=== PATIENT | female | born 1990 | race Caucasian/White ===

== ENCOUNTER 2016-02-15 11:26 | Emergency (ER) | payer OTHER ==
[~2016-02-15] VITALS: Ht 149.9 cm; Wt 40.5 kg
[2016-02-15 11:40] VITALS: Ht 149.9 cm; Wt 40.5 kg
[2016-02-15] MEDS ORDERED: LIDOCAINE 1% (MDV) 20 ML INJ SC ONE (13:00)
[2016-02-15] MEDS ORDERED: IBUPROFEN 600 MG TAB PO ONE (13:00)
[2016-02-15] MEDS ORDERED: IBUP400T22 PO (13:33)
[2016-02-15] MEDS ORDERED: HYDR-906 PO (13:33)
[2016-02-15] MEDS ORDERED: BACTDS PO (13:33)
--- NOTE | 2016-02-15 13:33 | ERD ---
ER Documentation Chief Complaint Date/Time DATE: 02/15/16 Chief Complaint Abscess to left axilla HPI The patient is a 25-year-old female who presents to the Emergency Department with complaint of an abscess to her left axillary region. She reports that she developed minimal pain, swelling, erythema, and tenderness to the left axilla last Saturday, one week ago, that has since worsened. She reports pressure- like throbbing pain to the site of the abscess, and notes that there is overlying erythema to the region that appears to be spreading. She has not yet taken any medication for pain relief. She denies any fevers, chills, nausea, or vomiting. Denies history of diabetes. Patient drove and brought herself to the ED. ROS All systems reviewed and are negative except as per history of present illness. 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 Head: Atraumatic Eyes: Normal Conjunctiva ENT: Normal External Ears, Nose and Mouth. Neck: Full range of motion. Supple. Resp: Clear to auscultation bilaterally Cardio: Regular rate and rhythm. Abd: Soft, non tender, non distended. Skin: 2 cm x 2 cm round, raised, fluctuant, tender abscess to the left axillary region, with overlying erythema and warmth. No spontaneous drainage. No bleeding. No lymphatic streaking. No crepitus. No petechiae or purpura. No ulcerations. No bullae. Ext: No clubbing, cyanosis, or edema. Moving all extremities. Distal pulses are palpable, 2+ bilaterally. Capillary refill is less than 2 seconds. Neur: Awake and alert Psych: Normal Mood and Affect Results 24 hrs Current Medications Medications (Trade) Dose Ordered Sig/Digna Route PRN Reason Start Time Stop Time Status Last Admin Dose Admin Ibuprofen (Motrin) 600 mg ONCE ONCE PO 02/15/16 13:00 02/15/16 13:01 DC 02/15/16 14:22 Lidocaine (Xylocaine 1% (Mdv) 20 ml) 20 ml ONCE ONCE SC 02/15/16 13:00 02/15/16 13:01 DC Procedures/MDM PROCEDURE: INCISION AND DRAINAGE OF ABSCESS INDICATION: Abscess to left axilla. CONSENT:Consent was obtained from the patient prior to the procedure. Indications, risks, and benefits were explained at length. PROCEDURE SUMMARY: A timeout protocol was performed prior to initiating the procedure. The patient was positioned appropriately. The area was prepared and draped in the usual sterile manner. The site was adequately anesthetized with approximately 2 cc 1% lidocaine without epinephrine. The are was cleaned/ irrigated with 10% betadine solution/NaCl. A sterile #11 blade scalpel was used to make a single linear 1 cm vertical incision along the local skin lines and the copious drainage of purulent discharge was expressed. The abscess was explored thoroughly and sequestered pockets were opened. Bleeding was minimal. Packing: The wound was packed with iodoform gauze The patient tolerated the procedure well without complications. The wound was dressed with sterile 4 x 4 gauze and paper tape. Standard post-procedure care was explained and return precautions were given. MEDICAL DECISION MAKING: This is a 25-year-old female presenting to the emergency department with a left axillary abscess that underwent incision and drainage. The patient tolerated the procedure well with no present complication. Copious purulent drainage was expressed and packing was placed. There is no present lymphatic streaking, no evidence of sepsis. At this time the patient is in stable condition and therefore she can be discharged home with a prescription for Bactrim, Ibuprofen and Hazel and strict return precautions for signs of deteriorating or worsening condition. She is advised to follow up with her primary medical provider in 2 days for wound check, packing removal, reevaluation and further management, or return to the ED sooner for any new or worsening symptoms. I shared my medical decision making and plan with the patient and she verbally understands and agrees with the plan for further observation and care as an outpatient. At the time of discharge all questions were answered. Departure Diagnosis: Primary Impression: Abscess of axilla, left Condition: Stable Patient Instructions: Abscess Drainage, Abscess, Antiobiotic Treatment Only, Abscess, Incision And Drainage Additional Instructions: Follow up in 2 days with your primary medical provider for reevaluation, packing removal, and further management. Return to the ED sooner for any new or worsening symptoms. Take all antibiotics as directed, twice a day for 7 days. JAMAAL PRYOR PA-C Feb 15, 2016 13:32
== END 2016-02-15 14:25 | disposition home or self-care (01) ==
LOC: FTE 11:26
DX: L02.412 Cutaneous abscess of left axilla (principal)
CPT/HCPCS: 10061; Z7502; Z7610

== ENCOUNTER 2016-02-17 12:02 | Emergency (ER) | payer OTHER ==
[~2016-02-17] VITALS: Wt 41.2 kg
[~2016-02-17 12:02] MED LIST: BACTDS PO; HYDR-906 PO; IBUP400T22 PO
--- NOTE | 2016-02-17 14:02 | ERD ---
ER Documentation Chief Complaint Date/Time DATE: 02/17/16 TIME: 14:01 Chief Complaint left under arm abscess wound recheck HPI 25-year-old female with no significant past medical history presents the ED for a wound check for the abscess that was drained under her left armpit. Patient denies any loss of sensation, loss of range of motion, fever, chills, increased redness or swelling. States that she filled her prescription for Bactrim and is taking it consistently. States that the Franklin and ibuprofen is working for her pain. ROS All systems reviewed and are negative except as per history of present illness. Medications Home Meds Active Scripts Sulfamethoxazole-Trimethoprim* (Bactrim* DS) 800-160 Mg Tab, 1 TAB PO BID for 7 Days, TAB Prov:JAMAAL PRYOR PA-C 02/15/16 Ibuprofen* (Motrin*) 400 Mg Tab, 400 MG PO Q6, #30 TAB Prov:JAMAAL PRYOR PA-C 02/15/16 Hydrocodone/Acetaminophen ([place] 5-325 Tablet) 1 Each Tablet, 1 EACH PO Q6, #5 TAB Prov:JAMAAL PRYOR PA-C 02/15/16 Allergies Allergies: Coded Allergies: No Known Allergy (Unverified , 02/17/16) PMhx/Soc History of Surgery: No Anesthesia Reaction: No Hx Neurological Disorder: No Hx Respiratory Disorders: No Hx Cardiac Disorders: No Hx Psychiatric Problems: No Hx Miscellaneous Medical Probl: Yes (BONE CANCER A CHILD ) Hx Alcohol Use: No Hx Substance Use: No Hx Tobacco Use: No Smoking Status: Never smoker Physical Exam Vitals Vital Signs Date Time Temp Pulse Resp B/P Pulse Ox O2 Delivery O2 Flow Rate FiO2 02/17/16 12:07 98.2 96 20 104/59 100 Physical Exam Const: [id number], well-nourished. In no acute distress. Head: Atraumatic, normocephalic Eyes: Normal Conjunctiva without injection ENT: Normal external ear, nose and mouth. Neck: Full range of motion. No meningismus. Resp: Clear to auscultation bilaterally. No wheezing, rhonchi, rales, or crackles. No accessory muscle use. No retractions. Cardio: Regular rate and rhythm, no murmurs Skin: No petechiae or rashes Back: No midline tenderness. No CVA tenderness. Ext: No cyanosis, or edema. Well healing 1 cm x 1 cm abscess with iodoform packing noted in the incision site of the abscess noted of the left axilla. No fluctuance, no induration. No lymphatic streaking, purulent discharge, erythema , edema, bleeding noted. Cap refill less than 2 seconds. Distal pulses intact bilaterally. Neur: Awake and alert. Normal gait and coordination. Muscle strength 5/5. Sensation intact bilaterally. Psych: Normal Mood and Affect Procedures/MDM This is a 25-year-old female with no significant past medical history presents the ED for a wound check for the abscess noted under her left armpit. Patient is afebrile and nontoxic-appearing. Patient has normal vital signs. There is no lymphatic streaking, erythema, edema, purulent discharge noted. Patient gave consent to remove the iodoform packing at this time. It was removed with no complications. Low suspicion for sepsis, cellulitis, necrotizing fasciitis, fractures, dislocations or other emergent conditions. Discharge medications: Continue and complete course of Bactrim. Take Ibuprofen and Franklin as needed for pain. Follow up with primary care physician in 1-2 days. Instructed patient to return to the ED sooner for any worsening symptoms. Patient's questions were answered. Patient understood and agreed with discharge plan. Patient discharged stable. Departure Diagnosis: Primary Impression: Encounter for wound re-check Condition: Stable Patient Instructions: Wound Care, Abscess Drainage Referrals: [facility] YOU HAVE RECEIVED A MEDICAL SCREENING EXAM AND THE RESULTS INDICATE THAT YOU DO NOT HAVE A CONDITION THAT REQUIRES URGENT TREATMENT IN THE EMERGENCY DEPARTMENT. FURTHER EVALUATION AND TREATMENT OF YOUR CONDITION CAN WAIT UNTIL YOU ARE SEEN IN YOUR DOCTORS OFFICE WITHIN THE NEXT 1-2 DAYS. IT IS YOUR RESPONSIBILITY TO MAKE AN APPOINTMENT FOR FOL-UP CARE. IF YOU HAVE A PRIMARY DOCTOR --you should call your primary doctor and schedule an appointment IF YOU DO NOT HAVE A PRIMARY DOCTOR YOU CAN CALL OUR PHYSICIAN REFERRAL HOTLINE AT IF YOU CAN NOT AFFORD TO SEE A PHYSICIAN YOU CAN CHOSE FROM THE FOLLOWING [facility] [address] [facility] [address] [facility] [address] [facility] [address] [facility] [address] [facility] [facility] [address] [facility]. [facility] YOU HAVE RECEIVED A MEDICAL SCREENING EXAM AND THE RESULTS INDICATE THAT YOU DO NOT HAVE A CONDITION THAT REQUIRES URGENT TREATMENT IN THE EMERGENCY DEPARTMENT. FURTHER EVALUATION AND TREATMENT OF YOUR CONDITION CAN WAIT UNTIL YOU ARE SEEN IN YOUR DOCTORS OFFICE WITHIN THE NEXT 1-2 DAYS. IT IS YOUR RESPONSIBILITY TO MAKE AN APPOINTMENT FOR FOLOW-UP CARE. IF YOU HAVE A PRIMARY DOCTOR --you should call your primary doctor and schedule and appointment IF YOU DO NOT HAVE A PRIMARY DOCTOR YOU CAN CALL OUR PHYSICIAN REFERRAL HOTLINE AT . IF YOU CAN NOT AFFORD TO SEE A PHYSICIAN YOU CAN CHOSE FROM THE FOLLOWING [facility] INSTITUTIONS: [facility] [address] [place] [address] [facility] [address] [place], [place] [id number] [place] [address] [address] [place] [address] [facility] Additional Instructions: Call your primary care doctor TOMORROW for an appointment during the next 2-3 days.See the doctor sooner or return here if your condition worsens before your appointment time. NAHUM ADLER PA-C Feb 17, 2016 14:02
== END 2016-02-17 14:00 | disposition home or self-care (01) ==
LOC: FTE 12:02
DX: Z48.01 Encounter for change or removal of surgical wound dressing (principal); Z85.830 Personal history of malignant neoplasm of bone
CPT/HCPCS: 99281

== ENCOUNTER 2016-03-15 15:51 | Emergency (ER) | payer OTHER ==
[~2016-03-15] VITALS: Wt 42.0 kg
[2016-03-15] MEDS ORDERED: MUPI22OI2 TOP (16:21)
[2016-03-15] MEDS ORDERED: DIPH28.32 TOP (16:22)
--- NOTE | 2016-03-15 16:33 | ERD ---
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 Patient states that the wound has been present for one week. The wound is increasing in size and itchy in nature. Patient denies any discharge or bleeding. Patient denies any new creams, lotions , environments. Patient denies any fever or chills. Patient denies any chest pain, shortness of breath, nausea, vomiting. She states that she had similar lesions in a few years ago, and "topical antibiotics helped clear it up". Of note patient was recently treated for abscess in her axilla. Patient completed full course of Bactrim antibiotics. Patient reports improvement of abscess. No drainage or bleeding from the affected site. ROS All systems reviewed and are negative except as per history of present illness. Medications Home Meds Active Scripts Diphenhydramine-Zinc* Topical (Diphenhydramine-Zinc* Topical) 1%-28 Gm Cream..g. , 1 APPLIC TOP QID, #1 TUB Prov:KEYANA LEVI PA-C 03/15/16 Mupirocin* (Bactroban*) 2% -22 Gram Oint...g., 1 APPLIC TOP BID for 7 Days, EA Prov:KEYANA LEVI PA-C 03/15/16 Sulfamethoxazole-Trimethoprim* (Bactrim* DS) 800-160 Mg Tab, 1 TAB PO BID for 7 Days, TAB Prov:JAMAAL PRYOR PA-C 02/15/16 Ibuprofen* (Motrin*) 400 Mg Tab, 400 MG PO Q6, #30 TAB Prov:JAMAAL PRYOR PA-C 02/15/16 Hydrocodone/Acetaminophen ([place] 5-325 Tablet) 1 Each Tablet, 1 EACH PO Q6, #5 TAB Prov:JAMAAL PRYOR PA-C 02/15/16 Allergies Allergies: Coded Allergies: No Known Allergy (Unverified , 02/17/16) PMhx/Soc History of Surgery: Yes (L knee replacement) Hx Neurological Disorder: No Hx Respiratory Disorders: No Hx Cardiac Disorders: No Hx Psychiatric Problems: No Hx Miscellaneous Medical Probl: Yes (BONE CANCER A CHILD ) Hx Alcohol Use: No Hx Substance Use: No Hx Tobacco Use: No FmHx Family History: No diabetes Physical Exam Vitals Vital Signs Date Time Temp Pulse Resp B/P Pulse Ox O2 Delivery O2 Flow Rate FiO2 03/15/16 16:05 98.5 84 20 104/70 98 Physical Exam GENERAL: Well-developed, well-nourished female. Appears in no acute distress. HEAD: Normocephalic, atraumatic. EYES: Pupils are equally reactive bilaterally. EOMs grossly intact. No conjunctival erythema. ENT: Moist mucous membranes. No uvula deviation. No kissing tonsils. NECK: Supple. No lymphadenopathy or thyromegaly. No meningismus. LUNG: Clear to auscultation bilaterally. No rhonchi, wheezing, rales or coarse breath sounds. HEART: Regular rate and rhythm. No murmurs, rubs or gallops. EXTREMITIES: Equal pulses bilaterally. No peripheral clubbing, cyanosis or edema. No unilateral leg swelling. NEUROLOGIC: Alert and oriented. Moving all four extremities without any difficulty. Normal speech. Steady gait. SKIN: Normal color. 2 cm circular slightly erythematous lesion noted to the anterior portion of left lower leg. No active bleeding or discharge. No warmth, no swelling, no streaking. No fluctuance. No wound dehiscence. LEFT KNEE: Long linear scar from upper leg to below knee, consistent with surgical history of knee replacement. Skin graft noted to left medial knee. Procedures/MDM MEDICAL DECISION MAKING: This is a 25-year-old female who presents with wound to her left lower leg times one week. She reports previous history of similar lesion. Vital signs were reviewed. Patient was afebrile. Patient is not diabetic. Skin exam revealed 2 cm circular erythematous lesion to the left anterior lower leg. Given these findings, the patients presentation is most consistent with skin infection secondary to MRSA. I have a much lower clinical concern for necrotizing fasciitis, sepsis, gangrene, abscess, cellulitis, herpes zoster, anaphylaxis, allergic reaction, allergic contact dermatitis, irritant contact dermatitis, fungal infection, insect bite, impetigo. PRESCRIPTIONS: Benadryl topical ointment, Mupirocin topical ointment DISCHARGE: At this time, patient is stable for discharge and outpatient management. I have advised the patient to avoid any new products, creams or possible allergens. I have advised the patient to avoid scratching the lesions. I have instructed the patient to follow-up with his/her primary care physician in 1-2 days. If symptoms persist, patient may need to see a traffic signal technician for further examinations and testing. I have instructed the patient to promptly return to the ER at any time for any new or worsening symptoms including increased pain, fever, redness, swelling, warmth, difficulty breathing or vomiting. The patient and/or family expressed understanding of and agreement with this plan. All questions were answered. Home care instructions were provided. Departure Diagnosis: Primary Impression: Skin infection Condition: Stable Patient Instructions: Mrsa Skin Infection, Suspected Or Confirmed Referrals: YIN MILLS MD,ZENA FANG,VIRI SHER,MESSI Garcia MD [facility] YOU HAVE RECEIVED A MEDICAL SCREENING EXAM AND THE RESULTS INDICATE THAT YOU DO NOT HAVE A CONDITION THAT REQUIRES URGENT TREATMENT IN THE EMERGENCY DEPARTMENT. FURTHER EVALUATION AND TREATMENT OF YOUR CONDITION CAN WAIT UNTIL YOU ARE SEEN IN YOUR DOCTORS OFFICE WITHIN THE NEXT 1-2 DAYS. IT IS YOUR RESPONSIBILITY TO MAKE AN APPOINTMENT FOR FOLOW-UP CARE. IF YOU HAVE A PRIMARY DOCTOR --you should call your primary doctor and schedule an appointment IF YOU DO NOT HAVE A PRIMARY DOCTOR YOU CAN CALL OUR PHYSICIAN REFERRAL HOTLINE AT IF YOU CAN NOT AFFORD TO SEE A PHYSICIAN YOU CAN CHOSE FROM THE FOLLOWING [facility] [address] [facility]. [facility] [address] [facility] [address] [facility] [address] [facility]. [facility] [address] [facility]. [facility]. [address] [facility] YOU HAVE RECEIVED A MEDICAL SCREENING EXAM AND THE RESULTS INDICATE THAT YOU DO NOT HAVE A CONDITION THAT REQUIRES URGENT TREATMENT IN THE EMERGENCY DEPARTMENT. FURTHER EVALUATION AND TREATMENT OF YOUR CONDITION CAN WAIT UNTIL YOU ARE SEEN IN YOUR DOCTORS OFFICE WITHIN THE NEXT 1-2 DAYS. IT IS YOUR RESPONSIBILITY TO MAKE AN APPOINTMENT FOR FOLOW-UP CARE. IF YOU HAVE A PRIMARY DOCTOR --you should call your primary doctor and schedule and appointment IF YOU DO NOT HAVE A PRIMARY DOCTOR YOU CAN CALL OUR PHYSICIAN REFERRAL HOTLINE AT . IF YOU CAN NOT AFFORD TO SEE A PHYSICIAN YOU CAN CHOSE FROM THE FOLLOWING [facility] INSTITUTIONS: [facility] [address] [place] [address] [facility] [address] [place] [address] [facility] [address] [place] [address] Additional Instructions: Call your primary care doctor TOMORROW for an appointment during the next 1-2 days.See the doctor sooner or return here if your condition worsens before your appointment time. See traffic signal technician if lesions persist. KEYANA LEVI PA-C Mar 15, 2016 16:33
== END 2016-03-15 16:23 | disposition home or self-care (01) ==
LOC: E/R 15:51
DX: L08.9 Local infection of the skin and subcutaneous tissue, unspecified (principal); Z85.830 Personal history of malignant neoplasm of bone; Z96.652 Presence of left artificial knee joint
CPT/HCPCS: 99283

== ENCOUNTER 2016-12-18 17:30 | Emergency (ER) | payer OTHER ==
[~2016-12-18] VITALS: Ht 157.5 cm; Wt 45.4 kg
[~2016-12-18 17:30] MED LIST changes: +DIPH28.32 TOP; +MUPI22OI2 TOP
[2016-12-18 18:17] VITALS: Ht 157.5 cm; Wt 45.4 kg
--- NOTE | 2016-12-18 20:29 | ERD ---
ER Documentation Chief Complaint Chief Complaint vag bleed since saturday; unknown HPI This 26 yr female present to ED for evaluation of ABD pain and vaginal bleeding and clots with mucous , pt denies missing mensuration, pt went to clinic today , told to come to ED for US ROS All systems reviewed and are negative except as per history of present illness. Medications Home Meds Active Scripts Ibuprofen* (Motrin*) 400 Mg Tab, 400 MG PO Q6, #30 TAB Prov:TIADOREEN 12/18/16 Diphenhydramine-Zinc* Topical (Diphenhydramine-Zinc* Topical) 1%-28 Gm Cream..g. , 1 APPLIC TOP QID, #1 TUB Prov:KEYANA LEVI PA-C 03/15/16 Mupirocin* (Bactroban*) 2% -22 Gram Oint...g., 1 APPLIC TOP BID for 7 Days, EA Prov:KEYANA LEVI PA-C 03/15/16 Sulfamethoxazole-Trimethoprim* (Bactrim* DS) 800-160 Mg Tab, 1 TAB PO BID for 7 Days, TAB Prov:JAMAAL PRYOR PA-C 02/15/16 Ibuprofen* (Motrin*) 400 Mg Tab, 400 MG PO Q6, #30 TAB Prov:JAMAAL PRYORC 02/15/16 Hydrocodone/Acetaminophen (Elliott 5-325 Tablet) 1 Each Tablet, 1 EACH PO Q6, #5 TAB Prov:JAMAAL PRYORC 02/15/16 Allergies Allergies: Coded Allergies: No Known Allergy (Unverified , 02/17/16) PMhx/Soc History of Surgery: Yes (L knee replacement) Anesthesia Reaction: No Hx Neurological Disorder: No Hx Respiratory Disorders: No Hx Cardiac Disorders: No Hx Psychiatric Problems: No 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 CVA tenderness Skin: Back: No midline or flank tenderness Ext: Neur: Awake and alert Psych: Normal Mood and Affect Results 24 hrs Laboratory Tests Test 12/18/16 20:40 Urine Color COLORLESS Urine Clarity CLEAR Urine pH 7.0 Urine Specific [place] 1.002 Urine Ketones NEGATIVEmg/dL Urine Nitrite NEGATIVEmg/dL Urine Bilirubin NEGATIVEmg/dL Urine Urobilinogen NEGATIVEmg/dL Urine Leukocyte Esterase NEGATIVELeu/ul Urine Microscopic RBC 0/HPF Urine Microscopic WBC 0/HPF Urine Bacteria FEW/HPF Urine Hemoglobin 3+mg/dL Urine Glucose NEGATIVEmg/dL Urine Total Protein NEGATIVEmg/dl Current Medications Medications (Trade) Dose Ordered Sig/Digna Route PRN Reason Start Time Stop Time Status Last Admin Dose Admin Ibuprofen (Motrin) 400 mg ONCE ONCE PO 12/18/16 20:30 12/18/16 20:32 DC 12/18/16 20:43 Urinalysis negative for evidence of infection, no leukocytosis, hematuria, or nitrates Procedures/MDM PROCEDURE: US Pelvis. CLINICAL INDICATION: pelvic pain TECHNIQUE: Multiple sonographic images of the pelvis were obtained utilizing a transabdominal and endovaginal technique. The images were reviewed on a PACS workstation. COMPARISON: None. FINDINGS: The uterus is normal in size with a normal appearance of the myometrium. The uterus measures 6.5 x 3.2 x 3.8 cm. The endometrial stripe is homogeneous in appearance and has the thickness of 1.7 mm. The ovaries are normal in size and echogenicity. Normal Doppler flow is identified in both ovaries. The right ovary measures 3.5 x 2.1 x 2.1 cm. The left ovary measures 2.8 x 1.4 x 2.1 cm. No free fluid is present within the pelvis. RPTAT: AA IMPRESSION: Unremarkable pelvic ultrasound. .Adan Ellsworth MD, Date Time Electronically viewed and signed by .Adan Ellsworth MD, on 12/18/2016 21: 14 This 26-year-old female presents to emergency department for evaluation of vaginal bleeding, patient denies , or missed menses. States that a mucus clot came out vaginally and she is concerned of miscarriage. Patient asked again as she had missed a menstruation patient verbalizes no, she has not taken any type of [id number]-[id number] test and reconfirms that as far she knows she is not , emergency room course includes history and physical exam, diagnostic testing with a lvfyc-yr-cgox test which is negative, urinalysis negative for evidence of infection, a ultrasound which documents an unremarkable pelvic ultrasound. Patient will be discharged home with ibuprofen, instructed to follow-up with gynecology. Return to emergency department for profuse vaginal bleeding, pain, dysuria. Patient is stable with no new complaints during ER course, clinically there is no current evidence to suggest meningitis, sepsis, acute abdomen, ectopic , ovarian torsion, urinary tract infection or any other emergent condition appearing to require further evaluation or hospitalization. I feel the patient is stable for discharge at this time. I have discussed results, examination findings, the treatment plan with the patient and family present prior to discharge. Indications for emergent reevaluation, side effects of medication were also discussed. All questions were answered. Patient verbalizes understanding and agrees with plan of care. Departure Diagnosis: Primary Impression: Vaginal bleeding Condition: Good Patient Instructions: Dysmenorrhea Referrals: [employer]ODUCTION MATERIAL [employer] REFERRAL LIST Additional Instructions: Thank you for for coming to [facility] for your care today. Please ask your nurse or provider if you have questions about your care today and do not leave until all your questions have been answered. Please use any medications given as directed and follow-up with your doctor (or the doctor you were referred to) in the next 2-3 days. If you do not have a primary care doctor you may follow up at the [facility] [place] (listed below). You may also use motrin and tylenol as needed for fever and/or pain unless instructed otherwise by your provider or nurse. Indications for more urgent follow-up have been discussed, but you may return to the Emergency Department at ANY time for any worrisome or worsening symptoms. If you have abdominal pain, please know that no test or exam you received is perfect and you should follow up within 8 hours for continued pain. If you had any imaging studies today, such as an X-Ray or CT Scan, these studies will be reviewed later by a radiologist. You will be called if there are important findings that were not identified today, so make sure the contact information you provided at registration is correct. If you received any narcotic pain control medicine today, such as Vicodin, Morphine or Dilaudid, your coordination and judgment may be affected for a number of hours. Please do not drive or operate heavy machinery, and you may want someone to assist you at home. If you were given a prescription for narcotic medication, be aware that it is very addictive- use sparingly and only if necessary. DOREEN WEBER Dec 18, 2016 20:28
--- NOTE | 2016-12-18 20:29 | ERD ---
ER Documentation Chief Complaint Chief Complaint vag bleed since saturday; unknown HPI This 26 yr female present to ED for evaluation of ABD pain and vaginal bleeding and clots with mucous , pt denies missing mensuration, pt went to clinic today , told to come to ED for US ROS All systems reviewed and are negative except as per history of present illness. Medications Home Meds Active Scripts Ibuprofen* (Motrin*) 400 Mg Tab, 400 MG PO Q6, #30 TAB Prov:TIADOREEN 12/18/16 Diphenhydramine-Zinc* Topical (Diphenhydramine-Zinc* Topical) 1%-28 Gm Cream..g. , 1 APPLIC TOP QID, #1 TUB Prov:KEYANA LEVI PA-C 03/15/16 Mupirocin* (Bactroban*) 2% -22 Gram Oint...g., 1 APPLIC TOP BID for 7 Days, EA Prov:KEYANA LEVI PA-C 03/15/16 Sulfamethoxazole-Trimethoprim* (Bactrim* DS) 800-160 Mg Tab, 1 TAB PO BID for 7 Days, TAB Prov:JAMAAL PRYOR PA-C 02/15/16 Ibuprofen* (Motrin*) 400 Mg Tab, 400 MG PO Q6, #30 TAB Prov:JAMAAL PRYORC 02/15/16 Hydrocodone/Acetaminophen ([place] 5-325 Tablet) 1 Each Tablet, 1 EACH PO Q6, #5 TAB Prov:JAMAAL PRYORC 02/15/16 Allergies Allergies: Coded Allergies: No Known Allergy (Unverified , 02/17/16) PMhx/Soc History of Surgery: Yes (L knee replacement) Anesthesia Reaction: No Hx Neurological Disorder: No Hx Respiratory Disorders: No Hx Cardiac Disorders: No Hx Psychiatric Problems: No 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 CVA tenderness Skin: Back: No midline or flank tenderness Ext: Neur: Awake and alert Psych: Normal Mood and Affect Results 24 hrs Laboratory Tests Test 12/18/16 20:40 Urine Color COLORLESS Urine Clarity CLEAR Urine pH 7.0 Urine Specific [place] 1.002 Urine Ketones NEGATIVEmg/dL Urine Nitrite NEGATIVEmg/dL Urine Bilirubin NEGATIVEmg/dL Urine Urobilinogen NEGATIVEmg/dL Urine Leukocyte Esterase NEGATIVELeu/ul Urine Microscopic RBC 0/HPF Urine Microscopic WBC 0/HPF Urine Bacteria FEW/HPF Urine Hemoglobin 3+mg/dL Urine Glucose NEGATIVEmg/dL Urine Total Protein NEGATIVEmg/dl Current Medications Medications (Trade) Dose Ordered Sig/Digna Route PRN Reason Start Time Stop Time Status Last Admin Dose Admin Ibuprofen (Motrin) 400 mg ONCE ONCE PO 12/18/16 20:30 12/18/16 20:32 DC 12/18/16 20:43 Urinalysis negative for evidence of infection, no leukocytosis, hematuria, or nitrates Procedures/MDM PROCEDURE: US Pelvis. CLINICAL INDICATION: pelvic pain TECHNIQUE: Multiple sonographic images of the pelvis were obtained utilizing a transabdominal and endovaginal technique. The images were reviewed on a PACS workstation. COMPARISON: None. FINDINGS: The uterus is normal in size with a normal appearance of the myometrium. The uterus measures 6.5 x 3.2 x 3.8 cm. The endometrial stripe is homogeneous in appearance and has the thickness of 1.7 mm. The ovaries are normal in size and echogenicity. Normal Doppler flow is identified in both ovaries. The right ovary measures 3.5 x 2.1 x 2.1 cm. The left ovary measures 2.8 x 1.4 x 2.1 cm. No free fluid is present within the pelvis. RPTAT: AA IMPRESSION: Unremarkable pelvic ultrasound. .Adan Ellsworth MD, Date Time Electronically viewed and signed by .Adan Ellsworth MD, on 12/18/2016 21: 14 This 26-year-old female presents to emergency department for evaluation of vaginal bleeding, patient denies , or missed menses. States that a mucus clot came out vaginally and she is concerned of miscarriage. Patient asked again as she had missed a menstruation patient verbalizes no, she has not taken any type of dqve-scp-qukvddy test and reconfirms that as far she knows she is not , emergency room course includes history and physical exam, diagnostic testing with a bolwn-fh-krwz test which is negative, urinalysis negative for evidence of infection, a ultrasound which documents an unremarkable pelvic ultrasound. Patient will be discharged home with ibuprofen, instructed to follow-up with gynecology. Return to emergency department for profuse vaginal bleeding, pain, dysuria. Patient is stable with no new complaints during ER course, clinically there is no current evidence to suggest meningitis, sepsis, acute abdomen, ectopic , ovarian torsion, urinary tract infection or any other emergent condition appearing to require further evaluation or hospitalization. I feel the patient is stable for discharge at this time. I have discussed results, examination findings, the treatment plan with the patient and family present prior to discharge. Indications for emergent reevaluation, side effects of medication were also discussed. All questions were answered. Patient verbalizes understanding and agrees with plan of care. Departure Diagnosis: Primary Impression: Vaginal bleeding Condition: Good Patient Instructions: Dysmenorrhea Referrals: [employer]INE [employer] REFERRAL LIST Additional Instructions: Thank you for for coming to [facility] [place] for your care today. Please ask your nurse or provider if you have questions about your care today and do not leave until all your questions have been answered. Please use any medications given as directed and follow-up with your doctor (or the doctor you were referred to) in the next 2-3 days. If you do not have a primary care doctor you [place] [facility] [place] You may also use motrin and tylenol as needed for fever and/or pain unless instructed otherwise by your provider or nurse. Indications for more urgent follow-up have been discussed, but you may return to the Emergency Department at ANY time for any worrisome or worsening symptoms. If you have abdominal pain, please know that no test or exam you received is perfect and you should follow up within 8 hours for continued pain. If you had any imaging studies today, such as an X-Ray or CT Scan, these studies will be reviewed later by a radiologist. You will be called if there are important findings that were not identified today, so make sure the contact information you provided at registration is correct. If you received any narcotic pain control medicine today, such as Vicodin, Morphine or Dilaudid, your coordination and judgment may be affected for a number of hours. Please do not drive or operate heavy machinery, and you may want someone to assist you at home. If you were given a prescription for narcotic medication, be aware that it is very addictive- use sparingly and only if necessary. DOREEN WEBER Dec 18, 2016 20:28
[2016-12-18] MEDS ORDERED: IBUPROFEN 200 MG TAB PO ONE (20:30)
--- NOTE | 2016-12-18 21:14 | RADRPT ---
PROCEDURE: US Pelvis. CLINICAL INDICATION: pelvic pain TECHNIQUE: Multiple sonographic images of the pelvis were obtained utilizing a transabdominal and endovaginal technique. The images were reviewed on a PACS workstation. COMPARISON: None. FINDINGS: The uterus is normal in size with a normal appearance of the myometrium. The uterus measures 6.5 x 3.2 x 3.8 cm. The endometrial stripe is homogeneous in appearance and has the thickness of 1.7 mm. The ovaries are normal in size and echogenicity. Normal Doppler flow is identified in both ovaries. The right ovary measures 3.5 x 2.1 x 2.1 cm. The left ovary measures 2.8 x 1.4 x 2.1 cm. No free fluid is present within the pelvis. RPTAT: AA IMPRESSION: Unremarkable pelvic ultrasound. .Adan Ellsworth MD, Date Time Electronically viewed and signed by .Adan Ellsworth MD, MD on 12/18/2016 21:14 .S/
[2016-12-18] MEDS ORDERED: IBUP400T22 PO (21:39)
[2016-12-18 22:00] VITALS: BP 101/57; PULSE 62; RESP 20
== END 2016-12-18 22:01 | disposition home or self-care (01) ==
LOC: FTE 17:30
DX: N93.8 Other specified abnormal uterine and vaginal bleeding (principal); R10.2 Pelvic and perineal pain
CPT/HCPCS: 76830; 76856; 81001; Z7502; Z7610

== ENCOUNTER 2017-06-20 19:24 | Emergency (ER) | END 2017-06-20 22:28 | disposition home or self-care (01) ==